=== PATIENT | female | born 1965 | race Caucasian/White ===

== ENCOUNTER → 2017-04-08 | Outpatient (CLI) | payer MEDICAID | LOC: FIMAGING 16:15 | DX: Z12.31 Encounter for screening mammogram for malignant neoplasm of breast (principal); Z80.3 Family history of malignant neoplasm of breast | CPT/HCPCS: G0202 ==

== ENCOUNTER → 2018-05-19 | Outpatient (CLI) | payer MEDICAID | LOC: GIMAGING 14:58 | DX: R05 Cough (principal); R06.2 Wheezing; J40 Bronchitis, not specified as acute or chronic; J18.9 Pneumonia, unspecified organism | CPT/HCPCS: 71046-PO ==